=== PATIENT | male | born 1945 | race Caucasian/White ===

== ENCOUNTER 2018-08-01 18:07 | Emergency (ER) | payer SELFPAY ==
[~2018-08-01] VITALS: Ht 185.4 cm; Wt 94.3 kg
[2018-08-01] MEDS ORDERED: PHENYLEPHRINE HCL 0.5 % NASAL SPRAY 15ML ONE (20:00)
[2018-08-01 20:21] LABS: Mean Corpuscular Hemoglobin 33.4 pg (28.0-32.0); Mean Corpuscular Hgb Conc. 31.3 g/dL (32.0-36.0); Mean Corpuscular Volume 106.6 fL (80.0-100.0); Platelet Count (auto) 190 10^3/uL (140-450); Red Blood Cells 3.29 10^6/uL (4.5-5.90)
[2018-08-01 20:25] LABS: Red Cell Distribution Width 22.6 % (11.8-14.3)
[2018-08-01 20:27] LABS: White Blood Cell 30.3 10^3/uL (4.4-10.8)
[2018-08-01 20:28] LABS: Band Neutrophils % (manual) 0; Basophils % (manual) 0 (0.0-2.0); Blast Cells 0; INR 1.25 (0.9-1.15); Metamyelocytes % 0; Myelocytes % 0; Partial Thromboplastin Time 32.7 sec (23.64-32.05); Promyelocytes % 0; Prothrombin Time 13.4 sec (9.06-12.60); Reactive Lymphocytes 0
[2018-08-01 20:37] LABS: Albumin 2.1 g/dL (3.4-5.0); Calcium 7.9 mg/dL (8.5-10.1); Potassium 4.7 mmol/L (3.5-5.1)
[2018-08-01 20:39] LABS: BUN/Creatinine Ratio 13.8
[2018-08-01 20:42] LABS: Bilirubin, Total 0.7 mg/dL (0.2-1.0); Total Protein 7.8 g/dL (6.4-8.2)
[2018-08-01 21:38] LABS: Eosinophils % (manual) 1 (0-7); Lymphocytes % (manual) 2 (10.0-50.0); Monocytes % (manual) 14 (0-12)
[2018-08-01 22:19] VITALS: BP 109/57
== END 2018-08-01 22:28 | disposition home or self-care (01) ==
LOC: ER 18:07
DX: R04.0 Epistaxis (principal); C95.90 Leukemia, unspecified not having achieved remission; N18.9 Chronic kidney disease, unspecified; E11.9 Type 2 diabetes mellitus without complications; Z88.0 Allergy status to penicillin; Z90.49 Acquired absence of other specified parts of digestive tract; Z95.0 Presence of cardiac pacemaker
CPT/HCPCS: 36415; 71045; 80053; 85007; 85027; 85610; 85730; 94761